=== PATIENT | female | born 1975 | race Caucasian/White ===

== ENCOUNTER 2017-01-20 19:48 | Emergency (ER) | payer SELFPAY ==
--- NOTE | ~2017-01-20 | ER ---
PATIENT'S NAME: TRISHA KAHN [facility] AGE: 41 Y [address] ROOM: [place] [address] LOCATION: [facility] ADMIT DATE: 01/20/2017 ER/Outpatient Report DISCHARGE DATE: 01/20/2017 FAMILY PHYSICIAN: Humza Aleman MD ATTENDING PHYSICIAN: Lauren Wyatt HISTORY OF PRESENT ILLNESS: This is a 41-year-old female, who presents today with chief complaint of headache and fever. It has been ongoing for the last 5 days. She reports that initially she had a right side pain. It was on her right side, nonradiating. She did not think too much of it because it felt like a backache, that went away. Then, she developed sort of a headache. She says that it is all over her head and it is sort of sharp, shooting pain around her head. She says these last for seconds each time, and in between them, she has absolutely no pain. It is not constant. It is not throbbing. She has no photophobia. So, she states that it is a sharp, shooting, nerve-like pain that goes to her head. It is 10/10 pain and they are happening every 20-30 seconds. She said it was not that often previously, but now, it is happening more often and her Advil was not helping, so that is why she decided to come in. She denies any nausea or vomiting. She has no neck pain or neck stiffness. She has not been around any sick contacts. No recent travel out of the country, no recent hiking history, no recent tick exposure. No drinking contaminated water. She reports that she has never had anything like this before. She has had migraines, but this is completely different as this is not constant, it is sort of like a sharp shooting pain that happens once in a while and lasts for seconds and then it is over. No difficulty swallowing, no chest pain, no shortness of breath, no visual disturbance. She does not have blurred vision or double vision. She has no photophobia. She has no dizziness or lightheadedness. No syncope, no nausea or vomiting, no neck discomfort, no altered mental status, and it is just this fever that has been ongoing as well, but no other exposure. PAST MEDICAL HISTORY: None. She says she is healthy. Does not get sick often. Does not take any medications at this time. PAST SURGICAL HISTORY: Includes x3 and hysterectomy. SOCIAL HISTORY: She smokes a pack per day and has done so, but has not been smoking recently because she does not like the taste of it though. Rare alcohol use. MEDICATIONS: None except for Tylenol. PATIENT'S NAME: TRISHA KAHN [facility] AGE: 41 Y [address] ROOM: [place], [place] [address] LOCATION: ED ADMIT DATE: 01/20/2017 ER/Outpatient Report DISCHARGE DATE: 01/20/2017 FAMILY PHYSICIAN: Humza Aleman MD ATTENDING PHYSICIAN: Lauren Wyatt ALLERGIES: NONE. REVIEW OF SYSTEMS: Reviewed by me are negative with the exception of those discussed in the HPI. PHYSICAL EXAMINATION: VITAL SIGNS: The patient is 5 feet 2 inches, she weighs 78.7 kilos, blood pressure is 143/89, heart rate 113, respiratory rate 18, temperature is 101.9, saturations are 95% on room air. GENERAL: The patient does not appear in any acute distress. Once a while, she will grimace and sort of squeeze her eyes tight when she says she gets these pain. They seem to last seconds each time and in between them she is talking to me appropriately and acting completely normally, speaking in full sentences. She is not lethargic. She is not actively vomiting or retching. She is not pale or diaphoretic. She does not appear toxic. HEENT: Her pupils are equal and reactive to light. She has no photophobia. She tracks appropriately. She has no C-spine tenderness. She has no nuchal rigidity and she has full range of motion of her neck from side to side. HEART: Heart rate is, she is mildly tachy at this time at 102 beats per minute. LUNGS: Her lung sounds are clear. She has no labored breathing, tachypnea, or accessory muscle use. ABDOMEN: Soft, nontender, nondistended. EXTREMITIES: She moves all extremities without any difficulty. Gait within normal limits. NEURO: Cranial nerves 2 through 12 are intact. Intact sensation in bilateral upper extremities. Intact sensation in bilateral lower extremities. Strength in bilateral upper and lower extremities is 5/5. No rash noted. ER COURSE: An IV was established and the patient was given fluids, Toradol, and Valium as well. She reports that this did not really help her too much. I also gave her fentanyl. We checked some blood work on her. The CBC shows a white count of 9.4, H and H of 13.5/36.3, platelets are 263. No bandemia or left shift. CMS shows sodium of 134, potassium 2.3, chloride 102, CO2 22, anion gap 12.3, BUN 16, creatinine is 1.1. Bilirubin is 0.9, alkaline phosphatase is 109, AST is 30, ALT is 38, GFR is 62. CRP greatly elevated at 23.5. Procalcitonin is mildly elevated at 0.6. Lactic acid is 1.1. EMERGENCY DEPARTMENT COURSE: I reassessed the patient after she had received the fentanyl after she said the Toradol and Valium did not help and she said that she is still having the shooting pain, but it was a lot better than before. It did not seem to happen PATIENT'S NAME: TRISHA KAHN [facility] AGE: 41 Y [address] ROOM: [place] [address] LOCATION: [facility] ADMIT DATE: 01/20/2017 ER/Outpatient Report DISCHARGE DATE: 01/20/2017 FAMILY PHYSICIAN: Humza Aleman MD ATTENDING PHYSICIAN: Lauren Wyatt so often and she says her pain is starting to feel better. I did explain to her about my concerns and I do not think she has bacterial meningitis as this is ongoing for 5 days. She does not appear toxic. She has no neck stiffness and the quality of her pain is a sharp shooting pain that comes and goes and she has completely normal in between these sharp stabbing pains that last for seconds each time. It is not consistent with bacterial meningitis. It could be viral meningitis, doubt encephalitis. She is not altered at all. I did explain to her that the way to make a definitive diagnosis is to do a lumbar puncture. The patient would not like to have this at this time. She reports that she wants to go home and try and continue with ibuprofen, pushing fluids, and see if she feels better. I did tell her that if she feels worse or her notices that she is altered where the pain is controlled that she would always come back to the ER. I also discussed this with Dr. Peter, who is covering for the patient's primary, Dr. Aleman, and arrange followup for her. She is to follow up with Dr. Aleman tomorrow morning. She understands the reasons to come back to the ER sooner. IMPRESSION: Headache, fever. MD OTONIEL JUNIOR/lindy /[id number] d: 01/21/17514 t: 01/22/17606, OUTPATIENT REPORT
[~2017-01-20 19:48] MED LIST: K-TAB ER20 MEQ PO; LEVOTHROID (S112 MCG PO; MOTRIN800 MG PO; PERCOCET 5-3251 EACH PO; [UNRECOGNIZED DRUG - OTHER] PO
[2017-01-20 20:37] LABS: BASOPHIL % 0.4 %; EOSINOPHIL % 0.1 %; HEMATOCRIT 36.3 % (33.0-46.0); HEMOGLOBIN 13.5 g/dL (10.0-15.0); IMMATURE GRANULOCYTE % 0.2 %; LYMPHOCYTE # 1.1 K/uL (0.8-4.0); LYMPHOCYTE % 11.9 %; MCH 31.3 pg (27.0-34.0); MCHC 37.2 gm/dL (32.0-36.5); MONOCYTE % 10.3 %; MPV 10.8 fl (9.4-12.4); NEUTROPHIL # (ANC) 7.3 K/uL (1.8-7.8); NEUTROPHIL % 77.1 %; NRBC % 0 /100WBC (0-0.00); PLATELET COUNT 263 K/uL (150-450); RBC 4.32 M/uL (3.50-5.50); RDW-CV 11.9 % (11.9-14.6); WBC 9.4 K/uL (4.0-11.0)
[2017-01-20 21:00] LABS: ALBUMIN 3.1 gm/dL (3.5-5.0); ANION GAP 12.3 (10.0-19.0); CALCIUM 9.1 mg/dL (8.5-10.5); CREATININE 1.1 mg/dL (0.5-1.1); TOTAL BILIRUBIN 0.9 mg/dL (0.0-1.5); TOTAL PROTEIN 8.1 g/dL (6.0-8.4)
[2017-01-20 21:03] LABS: POTASSIUM 2.3 mMol/L (3.7-5.1)
== END 2017-01-20 22:40 | disposition disaster alternative care site (69) ==
LOC: GMED 19:48
PROVIDERS: Emergency Medicine
DX: R51 Headache (principal); R50.9 Fever, unspecified; F17.210 Nicotine dependence, cigarettes, uncomplicated; Z90.710 Acquired absence of both cervix and uterus; Z79.1 Long term (current) use of non-steroidal anti-inflammatories (NSAID)
CPT/HCPCS: J1885; J3010; J7030